=== PATIENT | female | born 1955 | race Caucasian/White ===

== ENCOUNTER → 2017-05-21 | Outpatient (CLI) | payer MEDICARE, OTHER ==
[2017-05-21 15:44] LABS: ABSOLUTE EOSINOPHILS # (AUTO) 0.1 10^3/uL (0.0-0.6); ABSOLUTE LYMPHOCYTES (AUTO) 2.1 10^3/uL (0.5-4.7); ABSOLUTE MONOCYTES (AUTO) 0.5 10^3/uL (0.1-1.4); BASOPHILS % (AUTO) 0.7 % (0-2); EOSINOPHILS % (AUTO) 1.7 % (0-6); HEMATOCRIT 41.8 % (36.0-47.0); HEMOGLOBIN 14.2 g/dL (12.0-15.5); LYMPHOCYTES % (AUTO) 30.8 % (13-45); MEAN CORPUSCULAR HEMOGLOBIN 30.2 pg (27.0-33.4); MEAN CORPUSCULAR VOLUME 89 fl (80-97); MONOCYTES % (AUTO) 7.7 % (3-13); PLATELET COUNT 240 10^3/uL (150-450); RED BLOOD COUNT 4.71 10^6/uL (3.72-5.28); RED CELL DISTRIBUTION WIDTH 12.2 % (11.5-14.0); SEGMENTED NEUTROPHILS % (AUTO) 59.1 % (42-78); TOTAL CELLS COUNTED % (AUTO) 100 %; WHITE BLOOD COUNT 6.8 10^3/uL (4.0-10.5)
[2017-05-21 15:47] LABS: APPEARANCE,URINE SLIGHTLY-CLOUDY; BILIRUBIN,URINE NEGATIVE (NEGATIVE); COLOR,URINE AMBER; GLUCOSE, URINE NEGATIVE (NEGATIVE); KETONES,URINE TRACE mg/dL (NEGATIVE); LEUKOCYTE ESTERASE,URINE NEGATIVE (NEGATIVE); NITRITE,URINE NEGATIVE (NEGATIVE); PROTEIN,URINE NEGATIVE (NEGATIVE); URINE SPECIFIC GRAVITY 1.026
[2017-05-21 15:53] LABS: INTERNATIONAL RATION (INR) 0.79; PROTHROMBIN TIME 11.4 SEC (11.4-15.4)
== END ==
LOC: OD 15:00
PROVIDERS: ATTEND Pain Medicine Interventional Pain Medicine
DX: M96.1 Postlaminectomy syndrome, not elsewhere classified (principal); Z79.01 Long term (current) use of anticoagulants
CPT/HCPCS: 36415; 81001; 85025; 85610; 85730

== ENCOUNTER 2017-06-12 07:40 | Day surgery (SDC) | payer MEDICARE, OTHER ==
[2017-06-08 10:37] LABS: APPEARANCE,URINE CLEAR; BILIRUBIN,URINE NEGATIVE (NEGATIVE); COLOR,URINE YELLOW; GLUCOSE, URINE NEGATIVE (NEGATIVE); KETONES,URINE NEGATIVE (NEGATIVE); LEUKOCYTE ESTERASE,URINE NEGATIVE (NEGATIVE); NITRITE,URINE NEGATIVE (NEGATIVE); PROTEIN,URINE NEGATIVE (NEGATIVE); URINE SPECIFIC GRAVITY 1.017; UROBILINOGEN,URINE NEGATIVE mg/dL (<2.0)
[2017-06-08 10:49] LABS: HEMATOCRIT 41.8 % (36.0-47.0); HEMOGLOBIN 14.2 g/dL (12.0-15.5); MEAN CORPUSCULAR HEMOGLOBIN 30.3 pg (27.0-33.4); MEAN CORPUSCULAR VOLUME 89 fl (80-97); PLATELET COUNT 250 10^3/uL (150-450); RED BLOOD COUNT 4.69 10^6/uL (3.72-5.28); WHITE BLOOD COUNT 6.2 10^3/uL (4.0-10.5)
[2017-06-08 10:54] LABS: PROTHROMBIN TIME 11.5 SEC (11.4-15.4)
[2017-06-08 10:55] LABS: PARTIAL THROMBOPLASTIN TIME 29.7 SEC (23.5-35.8)
--- NOTE | 2017-06-08 12:15 | RADIOLOGY REPORT (SQ) ---
EXAM DESCRIPTION: CHEST PA/LATERAL COMPLETED DATE/TIME: 06/08/2017 10:51 am REASON FOR STUDY: PRE-OP COMPARISON: None. EXAM PARAMETERS: NUMBER OF VIEWS: two views TECHNIQUE: Digital Frontal and Lateral radiographic views of the chest acquired. RADIATION DOSE: NA LIMITATIONS: none FINDINGS: LUNGS AND PLEURA: No opacities, masses or pneumothorax. No pleural effusion. MEDIASTINUM AND HILAR STRUCTURES: No masses or contour abnormalities. HEART AND VASCULAR STRUCTURES: Heart normal size. No evidence for failure. BONES: No acute findings. HARDWARE: None in the chest. OTHER: No other significant finding. IMPRESSION: NO SIGNIFICANT RADIOGRAPHIC FINDING IN THE CHEST. TECHNICAL DOCUMENTATION: JOB ID: [id number] [employer]- All Rights Reserved Reading location - IP/workstation name: [email or web address]
--- NOTE | 2017-06-08 12:51 | EKG REPORT ---
SEVERITY:- NORMAL ECG - SINUS RHYTHM : Confirmed by: Jaiden Schmidt MD 08-Jun-2017 12:50:52
[~2017-06-12 07:40] MED LIST: CEFAZOLIN 1 GM/D5W RTU 1 GM/50 ML RTUPB IV PRN; FENTANYL CITRATE INJ/PF 100 MCG/2 ML AMPUL ONE; LACTATED RINGERS 1000 ML IV PRN; LIDOCAINE 0.5% INJ-PF (5 MG/ML) 50 ML SDV SUBCUT PRN; MIDAZOLAM 2 MG/2 ML INJ ONE; ONDANSETRON HCL INJ/PF 4 MG/2 ML SDV ONE; PROPOFOL INJ 200 MG/20 ML VIAL IV ONE
[2017-06-12] MEDS ORDERED: BUPIVACAINE HCL 0.5%-EPI 1:200000 INJ/PF 30 ML VIAL ONE (07:44)
[2017-06-12] MEDS ORDERED: LIDOCAINE 1% INJ-PF (10 MG/ML) 30 ML SDV ONE (07:44)
[2017-06-12] MEDS ORDERED: SODIUM BICARBONATE 8.4% INJ 50 MEQ/50 ML DISP.SYRIN ONE (07:44)
[2017-06-12] MEDS ORDERED: SCOPOLAMINE HYDROBROMIDE 1.5 MG PATCH.TD72 ONE (08:27)
[2017-06-12] MEDS ORDERED: DIPHENHYDRAMINE HCL 50 MG/ML VIAL IV PRN (10:02)
[2017-06-12] MEDS ORDERED: MEPERIDINE HCL/PF INJ 25 MG/1 ML DISP.SYRIN IV PRN (10:02)
[2017-06-12] MEDS ORDERED: MORPHINE SULFATE 10 MG/ML INJ IV PRN (10:02)
[2017-06-12] MEDS ORDERED: FENTANYL CITRATE INJ/PF 100 MCG/2 ML AMPUL IV PRN ×3 (10:02)
[2017-06-12] MEDS ORDERED: PROMETHAZINE HCL INJ 25 MG/1 ML VIAL IV PRN (10:02)
[2017-06-12] MEDS ORDERED: CEFAZOLIN INJ 1 GM VIAL ONE (11:00)
[2017-06-12] MEDS ORDERED: ACETAMINOPHEN 100 ML IV ONE (11:02)
[2017-06-12] MEDS ORDERED: FENTANYL CITRATE INJ/PF 100 MCG/2 ML AMPUL ONE (11:14)
[2017-06-12] MEDS ORDERED: MORPHINE SULFATE IR 15 MG TABLET PO PRN (11:28)
--- NOTE | 2017-06-12 11:59 | OPERATIVE REPORT E ---
Operative Report NAME: PARAMJIT JUAREZ : 1955 AGE: 61Y DATE OF SURGERY: 06/12/2017 ROOM: PREOPERATIVE DIAGNOSIS: Post-laminectomy syndrome with chronic back and lower extremity pain. POSTOPERATIVE DIAGNOSIS: Post-laminectomy syndrome with chronic back and lower extremity pain. PROCEDURES: 1. Implantation of right and left spinal cord stimulating leads with 8 electrodes per lead. 2. Implantation of programmable rechargeable pulse generator. 3. Fluoroscopy for needle placement and assistance with wire positioning and complex programming. SURGEON: ANNABEL OTOOLE M.D. INDICATIONS: Successful outpatient trial with spinal cord stimulator system. ANESTHESIA: MAC. SURGICAL ASSISTANTS: ANGEL OLSEN M.D. BLOOD LOSS: 10 mL. COMPLICATIONS: None. SPECIMENS REMOVED: None. PROCEDURE NOTE: After obtaining informed consent and advising the patient of the risks and benefits, including serious neurological injury, bleeding, infection, allergic reaction, aggravation of pain, failure to treat pain, paralysis, and , she was taken tot he operating room and placed comfortably in the prone position. Monitors were applied. MAC anesthesia was administered. The patient was prepped with the appropriate chlorhexidine prep x2 followed by appropriate drying time. She was then draped. Using fluoroscopy, the lumbar spine and thoracic spine were evaluated. Suitable entrance site at the T12-L1 interspace was identified. A midline incision was selected inferior to this. It should be also noted that the pulse generator pocket had been preselected over the right upper gluteal posterior lumbar region after discussion with the patient for preferences of location. Surgical dissection proceeded after local anesthetic administration with 1% lidocaine with bicarb followed by 0.25% bupivacaine with epinephrine. Sharp and blunt dissection were performed down to each location. Hemostasis was obtained with electrocautery as necessary. Suitable working zone was created in the lumbar region. Once this had satisfactorily taken place and the lumbar fascia was identified, a spinal needle was inserted on the right and left sides down to the interspace at T12-L1. Tuohy needles 14 gauge were then inserted bilaterally entering into the epidural space with loss of resistance to saline technique. No heme, cerebrospinal fluid, or paresthesias were noted. Electrodes were then advanced into each location. Care was taken to remain in the posterior region. AP and lateral views were selected to assure safe location. The leads were advanced up to the top of T8 and then moved slightly down approximately 1 *------*. A trial of stimulation was initiated and was satisfactory in all affected and desired regions. Decision was made to continue with the implant. Pursestrings and 0 [place] were placed around each needle followed by distal stay suture. [place] were removed sequentially. The pursestrings were secured. Anchors were placed and secured with the distal stay sutures. The leads were then tunneled to the pulse generator pocket. The left lead was marked with a black marker. They were connected to the pulse generator and checked for impedance. This was satisfactory. All wounds were copiously irrigated with Betadine-containing irrigation solution. Hemostasis was inspected again. Each wound was then closed with inverted vertical mattress sutures using 3-0 Polysorb. The skin approximated nicely on both locations. The skin was then sealed with Dermabond tape followed by Dermabond cement. When this was dry, Telfa and Tegaderm were placed over this. She was then taken to the PACU for further postoperative care and monitoring. DICTATING PHYSICIAN: ANNABEL OTOOLE M.D. [id number] PHY#: [id number] ID: [id number] JOB#: [id number] ACCT: [id number] cc:ANNABEL OTOOLE M.D. >
[2017-06-12 12:49] VITALS: BP 103/62
--- NOTE | 2017-06-12 15:50 | RADIOLOGY REPORT (SQ) ---
EXAM DESCRIPTION: NO CHG FLUORO; THORACOLUMBAR SPINE AP/LAT COMPLETED DATE/TIME: 06/12/2017 3:10 pm REASON FOR STUDY: SPINAL STIMULATOR PLCMT ASST WITH FLUORO IN OR COMPARISON: None. FLUOROSCOPY TIME: 2.8 minutes 13 Images saved to PACS LIMITATIONS: None. PROCEDURE: Neurostimulator electrode placement FINDINGS: Images obtained from fluoro document the placement of neural stimulator electrodes in the lower thoracic spine. IMPRESSION: Neural stimulator electrode placement appear COMMENT: PQRS 6045F: Fluoroscopy time of the procedure is documented in the report. TECHNICAL DOCUMENTATION: JOB ID: [id number] [employer]- All Rights Reserved Reading location - IP/workstation name: [email or web address]
--- NOTE | 2017-06-12 15:50 | RADIOLOGY REPORT (SQ) ---
EXAM DESCRIPTION: NO CHG FLUORO; THORACOLUMBAR SPINE AP/LAT COMPLETED DATE/TIME: 06/12/2017 3:10 pm REASON FOR STUDY: SPINAL STIMULATOR PLCMT ASST WITH FLUORO IN OR COMPARISON: None. FLUOROSCOPY TIME: 2.8 minutes 13 Images saved to PACS LIMITATIONS: None. PROCEDURE: Neurostimulator electrode placement FINDINGS: Images obtained from fluoro document the placement of neural stimulator electrodes in the lower thoracic spine. IMPRESSION: Neural stimulator electrode placement appear COMMENT: PQRS 6045F: Fluoroscopy time of the procedure is documented in the report. TECHNICAL DOCUMENTATION: JOB ID: [id number] [employer]- All Rights Reserved Reading location - IP/workstation name: [email or web address]
== END 2017-06-12 13:05 | disposition home or self-care (01) ==
LOC: OROUT 07:40
PROVIDERS: ATTEND Pain Medicine Interventional Pain Medicine
DX: G89.4 Chronic pain syndrome (principal); Z79.01 Long term (current) use of anticoagulants; Z79.899 Other long term (current) drug therapy; Z79.891 Long term (current) use of opiate analgesic; E78.5 Hyperlipidemia, unspecified; I10 Essential (primary) hypertension; R01.1 Cardiac murmur, unspecified; I47.1 Supraventricular tachycardia; G31.84 Mild cognitive impairment of uncertain or unknown etiology; M19.90 Unspecified osteoarthritis, unspecified site; F32.9 Major depressive disorder, single episode, unspecified; Z88.5 Allergy status to narcotic agent; M54.17 Radiculopathy, lumbosacral region
CPT/HCPCS: 63650; 63685; C1820; 1936; 36415; 71046; 72080; 81001; 85027; 85610; 85730; 93005; 93010; C1778; J0131; J0690; J2250; J2405; J2704; J3010; J3490

== ENCOUNTER → 2019-11-26 | Outpatient (CLI) | payer MEDICARE, OTHER ==
[2019-11-26 11:33] LABS: ABSOLUTE EOSINOPHILS # (AUTO) 0.1 10^3/uL (0.0-0.6); ABSOLUTE LYMPHOCYTES (AUTO) 1.1 10^3/uL (0.5-4.7); ABSOLUTE MONOCYTES (AUTO) 0.4 10^3/uL (0.1-1.4); ABSOLUTE NEUT (AUTO) 3.6 10^3/uL (1.7-8.2); BASOPHILS % (AUTO) 0.3 % (0-2); EOSINOPHILS % (AUTO) 1.1 % (0-6); HEMATOCRIT 38.1 % (36.0-47.0); HEMOGLOBIN 13.3 g/dL (12.0-15.5); LYMPHOCYTES % (AUTO) 20.9 % (13-45); MEAN CORPUSCULAR HEMOGLOBIN 30.4 pg (27.0-33.4); MEAN CORPUSCULAR HGB CONC 34.9 g/dL (32.0-36.0); MEAN CORPUSCULAR VOLUME 87 fl (80-97); MONOCYTES % (AUTO) 7.6 % (3-13); PLATELET COUNT 225 10^3/uL (150-450); RED BLOOD COUNT 4.36 10^6/uL (3.72-5.28); RED CELL DISTRIBUTION WIDTH 12.7 % (11.5-14.0); SEGMENTED NEUTROPHILS % (AUTO) 70.1 % (42-78); TOTAL CELLS COUNTED % (AUTO) 100 %; WHITE BLOOD COUNT 5.1 10^3/uL (4.0-10.5)
[2019-11-26 12:13] LABS: ERYTHROCYTE SEDIMENTATION RATE 11 mm/hr (0-30)
== END ==
LOC: OD 10:33
PROVIDERS: ATTEND Pain Medicine Interventional Pain Medicine
DX: G89.4 Chronic pain syndrome (principal)
CPT/HCPCS: 36415; 85025; 85652; 86140